=== PATIENT | female | born 1975 | race Two or more races ===

== ENCOUNTER → 2022-12-29 10:12 | Outpatient (BNVA) | payer BC, SELFPAY | PROVIDERS: Visit Provider Student in an Organized Health Care Education/Training Program | DX: Z13.89 Encounter for screening for other disorder (principal) ==

== ENCOUNTER 2023-06-07 16:03 | Outpatient (AMB) | payer BC, SELFPAY ==
--- NOTE | 2023-06-07 16:08 | A.OFFVIS_ITS ---
Intake Vital Signs 06/07/23 16:09 Height 5 ft 3 in Weight 235 lb 0.204 oz BMI 41.6 BP 116/82 Blood Pressure Location Rt brachial Position Sitting Pulse 61 Pulse Source Pulse Oximeter Temp 97.9 F Temp Source Skin Pulse Oximetry (%) 97 Intake Visit Reasons: FM Intake Note: Pt seen today for FM follow up. 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 Accompanied by: Self / Same As Patient Allergies lactose Allergy (Unknown, Verified 06/07/23 16:10) Unknown sulfamethoxazole [From Bactrim] Allergy (Unknown, Verified 06/07/23 16:10) Unknown trimethoprim [From Bactrim] Allergy (Unknown, Verified 06/07/23 16:10) Unknown Medication List - Last Reconciled 06/07/23 by Bo Mcdowell MD albuterol sulfate 90 mcg/actuation (ProAir HFA) 2 puffs inhalation Q6H PRN bupropion HCl 150 mg PO DAILY cholecalciferol (vitamin D3) 25 mcg PO DAILY dicyclomine 10 mg PO TID lithium carbonate ER 450 mg PO DAILY loratadine 10 mg PO DAILY lorazepam 1 mg PO DAILY PRN paroxetine HCl 40 mg PO DAILY soy [id number]-[id number] ilna 56-40-300 mg ([facility]) caps PO trazodone 50 mg PO BEDTIME HPI HPI Comments History of Present Illness Details 48-year-old female with fibromyalgia returns for follow-up. Patient states that over the last 1-2 years she has been lower midback pain that is nonradiating. The pain is worse with exertion and stress. Improved with ice packs. Aleve is not helpful. She stated that she had significant lower back pain 20 years ago with left-sided sciatica that improved with physical therapy. Initial history: This is a 47-year-old female with a past medical history of asthma, anxiety, depression, PTSD, IBS who presents for evaluation of multiple complaints. The condition started around November 2021 after patient received her 3rd COVID booster vaccine. Patient has been having multiple complaints including diarrhea. She was evaluated by [facility] and their evaluation was unremarkable except for allergy to cow's milk. She was found to have an antibody for EBV vaccine and evaluated by Infectious Disease and was deemed to have a past infection. She was evaluated by Gastroenterology. CT abdomen showed typhlitis, when repeated a few days later it was unremarkable. She received few courses of antibiotics. She also got a colonoscopy with biopsy which was unrevealing. She took treatment for IBS briefly without significant relief. Patient has been having diffuse pain especially in the middle of her back. She also has random tingling and numbness of her feet and hands. She did physical therapy for her back for 6 weeks which did not provide any significant pain relief. Patient has 2 young children age 9 and 11 and both are on the spectrum. [facility] Medical History Acne Asthma Lesion of skin of breast Mood disorder Obesity PTSD (post-traumatic stress disorder) Seasonal allergies Surgical History Hx of section Hx of tubal ligation Umbilical hernia Wheeler teeth extracted Family History Mother Diabetes Kidney disease Atrial fibrillation Father Hypertension Diabetes Son Autism Social History Household Members: Spouse and Children Alcohol intake: never Patient Tobacco Use Status: Never used Tobacco Current occupational status: employed Current occupation: learning disabled teacher Review of Systems [facility] [place] Reports back pain Physical Exam Vital Signs: Last Vital Signs Temp 97.9 F 06/07/23 16:09 Pulse 61 06/07/23 16:09 BP 116/82 06/07/23 16:09 Pulse Ox 97 06/07/23 16:09 BMI result Body Mass Index 41.6 Const General: cooperative, healthy appearing and comfortable Nutritional Appearance: obese morbidly obese Orientation/consciousness: patient oriented x3 Limitations: no limitations HEENT Head: Yes normocephalic and Yes atraumatic Resp Effort & Inspection: normal respiratory effort and able to speak in complete sentences Back/Spine/Pelvis Other: No spinal or paraspinal tenderness Negative straight leg raise test bilaterally Neuro General: patient oriented x3 Extrem Other: No active synovitis Results Reviewed Results Reviewed: Reviewed labs from 2021 which show TIFFANY/RF negative Assessment & Plan Assessment & Plan (1) Lumbar back pain: Code(s): M54.50 - Low back pain, unspecified Plan: 48-year-old female with history of fibromyalgia presents for evaluation of lower mid back pain that is nonradiating. Will refer patient for physical therapy. Advised patient that if her pain does not improve then she should request referral to pain management from her PCP for further evaluation Orders: Orders PT Evaluation and Treatment Today M54.50 - Low back pain, unspecified Coding Level of Care Code Est Pt Level 3 (16779) Diagnoses Lumbar back pain M54.50
[2023-06-07 16:09] VITALS: BP 116/82; PULSE 61; TEMP 36.6; O2SAT 97; BMI 41.6
== END 2023-06-07 16:26 | disposition home or self-care (01) ==
PROVIDERS: Visit Provider Student in an Organized Health Care Education/Training Program
DX: M54.50 Low back pain, unspecified (principal)
CPT/HCPCS: 99213

== ENCOUNTER → 2023-06-07 16:03 | Outpatient (BNVA) | payer BC, SELFPAY | PROVIDERS: Visit Provider Student in an Organized Health Care Education/Training Program ==